=== PATIENT | female | born 1960 | race Caucasian/White ===

== ENCOUNTER 2017-01-05 10:31 | Emergency (ER) | payer BC ==
--- NOTE | 2017-01-05 12:13 | DIAGNOSTIC IMAGING REPORT ---
PROCEDURE: XR LUMBAR SPINE 2 OR 3 VIEWS INDICATION: LOWER BACK PAIN TECHNIQUE: Three views. COMPARISON: None. FINDINGS: Disc space narrowing at L4-5. No evidence of an acute process or fracture. IMPRESSION: 1. Mild spondylosis L4-5
--- NOTE | 2017-01-05 12:27 | ED CLINICAL REPORT ---
Clinical Report - Physicians/Mid Levels [facility] [address] [place] [address] 01/05/2017 10:32 Patient: MATTHEW GILBERT Time Seen: 11:00. Arrived- By private vehicle. Historian- patient. HISTORY OF PRESENT ILLNESS Chief Complaint: BACK PAIN. It is described as being severe and radiating to the left hip and thigh. The quality is noted to be aching, "pain" and similar to prior episodes. Onset was last night and it is still present. It was abrupt in onset and has been constant. No bladder dysfunction, bowel dysfunction, sensory loss or motor loss. Patient denies a recent injury. Similar symptoms previously: Frequently. REVIEW OF SYSTEMS No chills, fever, sweats, calf pain or chest pain. No cough, difficulty breathing, pedal edema, palpitations or abdominal pain. No black stools, constipation, diarrhea, nausea or vomiting. No urinary problems. All systems otherwise negative, except as recorded above. PAST HISTORY Problems: Back Injury. Herniated Disk. Back Pain. Headache. Migraine Headache. Fall. Myofascial Strain. Sprain. Additional Surgeries: Carpal Tunnel Surgery. Cholecystectomy. . Tonsillectomy. Tubal Ligation. Medications: Migrane Medication. Albuterol Sulfate HFA Inhalation. Nortriptyline HCl Oral 100mg, at bedtime. Tylenol Extra Strength Oral 3 tabs at 0630. Allergies: Ibuprofen. Non-Steroidal Antinflammatory. Relafen. Wellbutrin. SOCIAL HISTORY Current every day light tobacco smoker (cigarette)- less than 1/2 a pack per day. Alcohol use; consumes wine occasionally. No drug use. She lives with spouse. Has good social support. FAMILY HISTORY Denies family medical history. ADDITIONAL NOTES The nursing notes have been reviewed. PHYSICAL EXAM Vital Signs: 01/05/2017 10:45 BP: 146/100. HR: 96. RR: 18. O2 saturation: 100%. Temp: 97.5 F. Pain level now: 08/10. Have been reviewed. Appearance: Alert. Appears to be in pain. Eyes: Pupils equal, round and reactive to light. ENT: Pharynx normal. Neck: Normal inspection. Neck nontender. Painless ROM. CVS: Heart sounds normal. Respiratory: No respiratory distress. Breath sounds normal. Abdomen: No visible injury. Back: Muscle spasm of the back. Severely limited ROM in the back- in the lumbar spine: decreased flexion, extension, right lateral bending, left lateral bending and rotation to the right and left. No CVA tenderness. Skin: Skin warm and dry. Normal skin color. Normal skin turgor. Extremities: Extremities exhibit normal ROM. No calf tenderness. Neuro: No motor deficit. No sensory deficit. LABS, X-RAYS, AND EKG LS-Spine X-rays: (PROCEDURE: XR LUMBAR SPINE 2 OR 3 VIEWS INDICATION: LOWER BACK PAIN TECHNIQUE: Three views. COMPARISON: None. FINDINGS: Disc space narrowing at L4-5. No evidence of an acute process or fracture. IMPRESSION: 1. Mild spondylosis L4-5). The X-rays were interpreted by the radiologist and contemporaneously by me. PROGRESS AND PROCEDURES Course of Care: Patient is stable. Patient/family counseled. Old medical records reviewed. Disposition: Discharged. Condition: stable. CLINICAL IMPRESSION Nontraumatic lumbar back pain associated with degenerative disc disease of the lumbar spine. Lumbar radiculopathy present. Sciatica present on the right. INSTRUCTIONS Apply ice for 20 minutes four times a day until better. Don't apply ice directly to skin and don't use while asleep. No driving or operating machinery while taking medication. Warnings: GENERAL WARNINGS: Return or contact your physician immediately if your condition worsens or changes unexpectedly, if not improving as expected, or if other problems arise. Your Current Medications: CONTINUE TAKING THE FOLLOWING MEDICATIONS: Albuterol Sulfate HFA Inhalation. Migrane Medication*. Nortriptyline HCl Oral : 100mg at bedtime. CONTINUE TAKING THE FOLLOWING MEDICATIONS UNTIL YOU CHECK WITH YOUR PHYSICIAN: Tylenol Extra Strength Oral : 3 tabs at 0630. Prescription Medications: Hydrocodone/APAP 5mg/325mg: take 1 to 2 orally every 6 hours as needed for pain. Dispense fifteen (15). No refills. Understanding of the discharge instructions verbalized by patient and family. Follow-up with: Ladonna Hernandez, Advanced Registered Nurse Practitioner, , [facility], [address] [place], [place] [address], [id number] Follow up tomorrow Wednesday in one day as scheduled. (Electronically signed by Dewayne Toledo MD 01/05/2017 14:21)
--- NOTE | 2017-01-05 12:27 | ED ORDER SUMMARY ---
..... Patient: MATTHEW GILBERT OrderSheet Located Within [facility] VisitID: [id number] [address] [place] [address] 56y, F Registration Date/Time: 01/05/2017 ORDER SHEET Weight: 72.5 kg (stated) Allergies: Ibuprofen, Non-Steroidal Antinflammatory, Relafen, Wellbutrin GENERAL ORDERS: Lumbar Spine 2 or 3V Urgent (11:09 01/05/2017 Milana GRAHAM) (Ack 11:11 Danae) (11:23 Kacy R.N.) MEDICATION ORDERS: Dilaudid IM 2 mg (HIGH ALERT MEDICATION, NOW) (11:43 01/05/2017 Milana GRAHAM) (Ack 11:44 BURToarsara R.N.) (11:48 JBoardley R.N.) Zofran ODT PO 4 mg (NOW) (11:49 01/05/2017 Madisyn R.N. per protocol) (11:49 BURToardley R.N.) IV FLUIDS: ORDER SHEET NOTES: [Electronically signed by Diallo Vanessa R.N. (13:24 01/05/2017)] [Electronically signed by Dewayne Toledo MD (14:21 01/05/2017)] [Electronically locked/signed by Diallo Vanessa R.N. (13:24 01/05/2017)]
--- NOTE | 2017-01-05 12:27 | ED NURSING NOTES ---
Clinical Report - Nurses [facility] [address] [place] [address] 01/05/2017 10:32 Patient: MATTHEW GILBERT TRIAGE Triage time 10:45. Acuity: LEVEL 4. Chief Complaint: BACK PAIN. 10:45 01/05/17. 10:45 01/05/17. Alert. No acute distress. ( Pt states that she has chronic back pain and possibly has a flair up of this.). SEPSIS SCREEN: Sepsis Screen. Negative (no infection suspected/documented). RUT COMA SCORE: [place] Coma Scale: 15- eyes open spontaneously (4); best verbal response- oriented x 4 (5); best motor response- obeys commands (6). --10:49 Diallo Vanessa R.N. 10:45 01/05/17. BP: 146/100. HR: 96. RR: 18. O2 saturation: 100% on room air. Temp: 97.5 F (oral). Pain level now: 08/10. --10:49 Diallo Vanessa R.N. Weight: 72.5 kg stated. Height/Length: 62 inches Per Patient. BMI: 29.3. --10:45 Diallo Vanessa R.N. Medications Nortriptyline HCl Oral 100mg, at bedtime. Tylenol Extra Strength Oral 3 tabs at 0630. --10:48 Diallo Vanessa R.N. Albuterol Sulfate HFA Inhalation. --10:48 Diallo Vanessa R.N. Migrane Medication. --10:49 Diallo Vanessa R.N. Medication/allergy information source: the patient. --10:49 Diallo Vanessa R.N. Allergies Ibuprofen. --10:48 Diallo Vanessa R.N. Non-Steroidal Antinflammatory. Relafen. Wellbutrin. --10:48 Diallo Vanessa R.N. History Arrived by private vehicle. Historian: patient. Accompanied by family. Primary physician (Hiral LYNN). 10:45 01/05/17. Onset. (1 week ago). She has had trouble walking. No history of recent trauma. 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 PAST MEDICAL HX: Tetanus immunization status is not up-to-date. Immunizations not up to date. SOCIAL HX: Current every day light tobacco smoker (cigarette)- less than 1/2 a pack per day. Occasional alcohol use; consumes wine. No drug use. No infectious disease exposure. ABUSE ASSESSMENT: No report of abuse. FALL RISK ASSESSMENT: Fall risk assessment completed. No fall risk identified. NUTRITIONAL RISK ASSESSMENT: The nutritional risk assessment revealed no deficiencies. FUNCTIONAL ASSESSMENT: Functional assessment: no impairments noted. LEARNING NEEDS ASSESSMENT: The learning needs assessment revealed no barriers. SKIN INTEGRITY ASSESSMENT: Skin integrity risk assessment completed. No skin integrity risk identified. --10:49 Diallo Vanessa R.N. PROBLEMS: Headache. Migraine Headache. Fall. Myofascial Strain. Sprain. --10:49 Diallo Vanessa R.N. Concussion [RuleOut]. --10:49 Diallo Vanessa R.N. Back Injury. Herniated Disk. Back Pain. --10:51 Diallo Vanessa R.N. ADDITIONAL SURGERIES: Carpal Tunnel Surgery. Cholecystectomy. . Tonsillectomy. Tubal Ligation. --10:49 Diallo Vanessa R.N. Assessment 10:45 01/05/17. --10:49 Diallo Vanessa R.N. Interventions 10:45 01/05/17. 10:45 01/05/17. ID and allergy band on patient. To treatment room. --10:49 Diallo Vanessa R.N. PHYSICAL ASSESSMENT 10:50 01/05/17. To room via wheelchair. GENERAL / NEURO / PSYCH: Alert. Oriented X 4. Appears in pain. RESPIRATORY: Respirations not labored. CVS: Capillary refill less than 2 seconds. --10:50 Diallo Vanessa R.N. 10:51 01/05/17. BACK: ( Lumbar back pain with palpation). --10:51 Diallo Vanessa R.N. NURSING PROGRESS NOTES 10:50 01/05/17. The plan of care for this patient has been created. Patient gowned. Head of bed elevated. Two patient identifiers checked. Call light placed in reach. Side rails up x 2. Bed placed in lowest position. Brakes of bed on. Brakes of chair on. --10:50 Diallo Vanessa R.N. 10:50 01/05/17. Patient ready for evaluation- chart flagged and notification provided. --10:50 Diallo Vanessa R.N. Patient transported to radiology by stretcher. Patient returned from radiology by stretcher with tech. --11:23 Krista Ortiz R.N. 11:48 01/05/2017 Dilaudid (HYDROmorphone HCl PF) IM 2 mg given. Given in the right deltoid. Allergies verified, confirmed 5 rights and sedative warning given to the patient. --11:48 Diallo Vanessa R.N. 11:49 01/05/2017 Zofran ODT (Ondansetron) PO 4 mg given. Allergies verified and confirmed 5 rights. --11:49 Diallo Vanessa R.N. 11:50 01/05/17. --11:50 Diallo Vanessa R.N. 11:49 01/05/17. BP: 142/92. HR: 81. RR: 14. O2 saturation: 100% on room air. --11:50 Daillo Vanessa R.N. 11:50 01/05/17. ( Pt is sitting in wheelchair for comfort, call light within reach, at bedside). --11:50 Diallo Vanessa R.N. 12:20 01/05/17. Reassessment after medication administered. She has had no adverse reaction. Overall patient status is improved- she states feels better. GENERAL / NEURO / PSYCH: Alert. Oriented X 4. No sensory deficit. RESPIRATORY: No respiratory distress. Breath sounds normal. SKIN: Skin is warm and dry. Skin color within normal limits. ( Pt is able to stand and ambulate after pain meds). --12:20 Diallo Vanessa R.N. DISPOSITION / DISCHARGE 12:32 01/05/17. Condition at departure: improved. The goals identified in the patient's plan of care were met. No learning barriers present. Discharge instructions provided and reviewed with the patient and spouse. Reviewed warnings. Reviewed medication(s). Treatments reviewed. Patient and spouse verbalized understanding. Written instructions provided in Telugu. The patient was discharged by the physician. She was discharged home and accompanied by family. She left the Emergency Department in a wheelchair and via private vehicle. Family member driving. FALL RISK ASSESSMENT: Fall risk assessment completed. No fall risk identified. --12:32 Diallo Vanessa R.N. 12:31 01/05/17. BP: 145/85. HR: 80. RR: 14. O2 saturation: 99% on room air. Temp: 98 F (oral). Pain level now: 02/08. --12:32 Diallo Vanessa R.N. 12:32 01/05/17. Departure time: 12:32. --12:32 Diallo Vanessa R.N. Locked/Released at 01/05/2017 13:24 by Diallo Vanessa R.N.
--- NOTE | 2017-01-05 12:27 | ED CLINICAL REPORT ---
Clinical Report - Physicians/Mid Levels [facility] [address] [place] [address] 01/05/2017 10:32 Patient: MATTHEW GILBERT Time Seen: 11:00. Arrived- By private vehicle. Historian- patient. HISTORY OF PRESENT ILLNESS Chief Complaint: BACK PAIN. It is described as being severe and radiating to the left hip and thigh. The quality is noted to be aching, "pain" and similar to prior episodes. Onset was last night and it is still present. It was abrupt in onset and has been constant. No bladder dysfunction, bowel dysfunction, sensory loss or motor loss. Patient denies a recent injury. Similar symptoms previously: Frequently. REVIEW OF SYSTEMS No chills, fever, sweats, calf pain or chest pain. No cough, difficulty breathing, pedal edema, palpitations or abdominal pain. No black stools, constipation, diarrhea, nausea or vomiting. No urinary problems. All systems otherwise negative, except as recorded above. PAST HISTORY Problems: Back Injury. Herniated Disk. Back Pain. Headache. Migraine Headache. Fall. Myofascial Strain. Sprain. Additional Surgeries: Carpal Tunnel Surgery. Cholecystectomy. . Tonsillectomy. Tubal Ligation. Medications: Migrane Medication. Albuterol Sulfate HFA Inhalation. Nortriptyline HCl Oral 100mg, at bedtime. Tylenol Extra Strength Oral 3 tabs at 0630. Allergies: Ibuprofen. Non-Steroidal Antinflammatory. Relafen. Wellbutrin. SOCIAL HISTORY Current every day light tobacco smoker (cigarette)- less than 1/2 a pack per day. Alcohol use; consumes wine occasionally. No drug use. She lives with spouse. Has good social support. FAMILY HISTORY Denies family medical history. ADDITIONAL NOTES The nursing notes have been reviewed. PHYSICAL EXAM Vital Signs: 01/05/2017 10:45 BP: 146/100. HR: 96. RR: 18. O2 saturation: 100%. Temp: 97.5 F. Pain level now: 08/10. Have been reviewed. Appearance: Alert. Appears to be in pain. Eyes: Pupils equal, round and reactive to light. ENT: Pharynx normal. Neck: Normal inspection. Neck nontender. Painless ROM. CVS: Heart sounds normal. Respiratory: No respiratory distress. Breath sounds normal. Abdomen: No visible injury. Back: Muscle spasm of the back. Severely limited ROM in the back- in the lumbar spine: decreased flexion, extension, right lateral bending, left lateral bending and rotation to the right and left. No CVA tenderness. Skin: Skin warm and dry. Normal skin color. Normal skin turgor. Extremities: Extremities exhibit normal ROM. No calf tenderness. Neuro: No motor deficit. No sensory deficit. LABS, X-RAYS, AND EKG LS-Spine X-rays: (PROCEDURE: XR LUMBAR SPINE 2 OR 3 VIEWS INDICATION: LOWER BACK PAIN TECHNIQUE: Three views. COMPARISON: None. FINDINGS: Disc space narrowing at L4-5. No evidence of an acute process or fracture. IMPRESSION: 1. Mild spondylosis L4-5). The X-rays were interpreted by the radiologist and contemporaneously by me. PROGRESS AND PROCEDURES Course of Care: Patient is stable. Patient/family counseled. Old medical records reviewed. Disposition: Discharged. Condition: stable. CLINICAL IMPRESSION Nontraumatic lumbar back pain associated with degenerative disc disease of the lumbar spine. Lumbar radiculopathy present. Sciatica present on the right. INSTRUCTIONS Apply ice for 20 minutes four times a day until better. Don't apply ice directly to skin and don't use while asleep. No driving or operating machinery while taking medication. Warnings: GENERAL WARNINGS: Return or contact your physician immediately if your condition worsens or changes unexpectedly, if not improving as expected, or if other problems arise. Your Current Medications: CONTINUE TAKING THE FOLLOWING MEDICATIONS: Albuterol Sulfate HFA Inhalation. Migrane Medication*. Nortriptyline HCl Oral : 100mg at bedtime. CONTINUE TAKING THE FOLLOWING MEDICATIONS UNTIL YOU CHECK WITH YOUR PHYSICIAN: Tylenol Extra Strength Oral : 3 tabs at 0630. Prescription Medications: Hydrocodone/APAP 5mg/325mg: take 1 to 2 orally every 6 hours as needed for pain. Dispense fifteen (15). No refills. Understanding of the discharge instructions verbalized by patient and family. Follow-up with: Ladonna Hernandez, Advanced Registered Nurse Practitioner, , [facility], [address] [place], [place] [address], [id number] Follow up tomorrow Wednesday in one day as scheduled. (Electronically signed by Dewayne Toledo MD 01/05/2017 14:21)
--- NOTE | 2017-01-05 12:27 | ED ORDER SUMMARY ---
..... Patient: MATTHEW GILBERT OrderSheet [facility] VisitID: [id number] [address] [place] [address] 56y, F Registration Date/Time: 01/05/2017 ORDER SHEET Weight: 72.5 kg (stated) Allergies: Ibuprofen, Non-Steroidal Antinflammatory, Relafen, Wellbutrin GENERAL ORDERS: Lumbar Spine 2 or 3V Urgent (11:09 01/05/2017 Milana GRAHAM) (Ack 11:11 Danae) (11:23 Kacy R.N.) MEDICATION ORDERS: Dilaudid IM 2 mg (HIGH ALERT MEDICATION, NOW) (11:43 01/05/2017 Milana GRAHAM) (Ack 11:44 BURToarsara R.N.) (11:48 JBoardley R.N.) Zofran ODT PO 4 mg (NOW) (11:49 01/05/2017 Madisyn R.N. per protocol) (11:49 BURToardley R.N.) IV FLUIDS: ORDER SHEET NOTES: [Electronically signed by Diallo Vanessa R.N. (13:24 01/05/2017)] [Electronically signed by Dewayne Toledo MD (14:21 01/05/2017)] [Electronically locked/signed by Diallo Vanessa R.N. (13:24 01/05/2017)]
--- NOTE | 2017-01-05 14:21 | ED MED RECONCILIATION SUMMARY ---
Patient: MATTHEW GILBERT Medication Reconciliation Report [facility] VisitID: [id number] [address] [place] [address] 56y, F Registration Date/Time: 01/05/2017 Weight: 72.5 kg Height/Length: 62 in. BMI: 29.3 ALLERGIES: Ibuprofen, Non-Steroidal Antinflammatory, Relafen, Wellbutrin The patient's Home Medications are listed below: CONTINUE TAKING THE FOLLOWING MEDICATIONS: Albuterol Sulfate HFA Inhalation Migrane Medication Nortriptyline HCl Oral 100mg, at bedtime CONTINUE TAKING THE FOLLOWING MEDICATIONS UNTIL YOU CHECK WITH YOUR PHYSICIAN: Tylenol Extra Strength Oral 3 tabs at 0630 The source(s) of the original Home Medication information: patient The following Medications were given to the patient in the Emergency Department: Dilaudid [IM] IM 2 mg, administered: 01/05/2017 11:48:00 AM Zofran ODT [PO] PO 4 mg, administered: 01/05/2017 11:49:00 AM The following Medications were prescribed to the patient: Hydrocodone/APAP 5mg/325mg: take 1 to 2 orally every 6 hours as needed for pain. Dispense fifteen (15). No refills. -- Dewayne Toledo MD
--- NOTE | 2017-01-05 14:21 | ED MAR SUMMARY ---
..... Medication Administration Record [facility] [address] [place] [address] Patient: MATTHEW GILBERT Visit ID: [id number] 56y, F Weight: 72.5 kg Height/Length: 62 in BMI: 29.3 ALLERGIES: Ibuprofen, Non-Steroidal Antinflammatory, Relafen, Wellbutrin Given 11:48 01/05/2017 Diallo Vanessa R.N. Medication Administered: DILAUDID [IM] (HYDROMORPHONE HCL PF), Dose: 2 mg IM. Medication Ordered: Dilaudid IM 2 mg (HIGH ALERT MEDICATION, NOW). Given 11:49 01/05/2017 Diallo Vanessa R.N. Medication Administered: ZOFRAN ODT [PO] (ONDANSETRON), Dose: 4 mg PO. Medication Ordered: Zofran ODT PO 4 mg (NOW).
--- NOTE | 2017-01-05 14:21 | ED MED RECONCILIATION SUMMARY ---
Patient: MATTHEW GILBERT Medication Reconciliation Report [facility] VisitID: [id number] [address] [place] [address] 56y, F Registration Date/Time: 01/05/2017 Weight: 72.5 kg Height/Length: 62 in. BMI: 29.3 ALLERGIES: Ibuprofen, Non-Steroidal Antinflammatory, Relafen, Wellbutrin The patient's Home Medications are listed below: CONTINUE TAKING THE FOLLOWING MEDICATIONS: Albuterol Sulfate HFA Inhalation Migrane Medication Nortriptyline HCl Oral 100mg, at bedtime CONTINUE TAKING THE FOLLOWING MEDICATIONS UNTIL YOU CHECK WITH YOUR PHYSICIAN: Tylenol Extra Strength Oral 3 tabs at 0630 The source(s) of the original Home Medication information: patient The following Medications were given to the patient in the Emergency Department: Dilaudid [IM] IM 2 mg, administered: 01/05/2017 11:48:00 AM Zofran ODT [PO] PO 4 mg, administered: 01/05/2017 11:49:00 AM The following Medications were prescribed to the patient: Hydrocodone/APAP 5mg/325mg: take 1 to 2 orally every 6 hours as needed for pain. Dispense fifteen (15). No refills. -- Dewayne Toledo MD
--- NOTE | 2017-01-05 14:21 | ED MAR SUMMARY ---
..... Medication Administration Record [facility] [address] [place] [address] Patient: MATTHEW GILBERT Visit ID: [id number] 56y, F Weight: 72.5 kg Height/Length: 62 in BMI: 29.3 ALLERGIES: Ibuprofen, Non-Steroidal Antinflammatory, Relafen, Wellbutrin Given 11:48 01/05/2017 Diallo Vanessa R.N. Medication Administered: DILAUDID [IM] (HYDROMORPHONE HCL PF), Dose: 2 mg IM. Medication Ordered: Dilaudid IM 2 mg (HIGH ALERT MEDICATION, NOW). Given 11:49 01/05/2017 Diallo Vanessa R.N. Medication Administered: ZOFRAN ODT [PO] (ONDANSETRON), Dose: 4 mg PO. Medication Ordered: Zofran ODT PO 4 mg (NOW).
--- NOTE | 2017-01-05 14:21 | ED DISCHARGE INSTRUCTIONS ---
Patient: MATTHEW GILBERT General Instructions [facility] VisitID: [id number] [place] [phone], F Registration Date/Time: 01/05/2017 Nontraumatic lumbar back pain associated with degenerative disc disease of the lumbar spine. Lumbar radiculopathy present. Sciatica present on the right. INSTRUCTIONS Apply ice for 20 minutes four times a day until better. Don't apply ice directly to skin and don't use while asleep. No driving or operating machinery while taking medication. Warnings: GENERAL WARNINGS: Return or contact your physician immediately if your condition worsens or changes unexpectedly, if not improving as expected, or if other problems arise. Your Current Medications: CONTINUE TAKING THE FOLLOWING MEDICATIONS: Albuterol Sulfate HFA Inhalation. Migrane Medication*. Nortriptyline HCl Oral : 100mg at bedtime. CONTINUE TAKING THE FOLLOWING MEDICATIONS UNTIL YOU CHECK WITH YOUR PHYSICIAN: Tylenol Extra Strength Oral : 3 tabs at 0630. Prescription Medications: Hydrocodone/APAP 5mg/325mg: take 1 to 2 orally every 6 hours as needed for pain. Dispense fifteen (15). No refills. Understanding of the discharge instructions verbalized by patient and family. Follow-up with: Ladonna Hernandez, Advanced Registered Nurse Practitioner, , [facility], [address] [place] [address] Follow up tomorrow Wednesday in one day as scheduled. ADDITIONAL INFORMATION Sciatica Sciatica ("Lumbar Radiculopathy") causes a pain that spreads from the lower back down into the buttock, hip and leg. Sometimes leg pain can occur without any back pain. Sciatica is due to irritation or pressure on a spinal nerve as it comes out of the spinal canal. This is most often due to a bulge or rupture of a nearby spinal disk (the cartilage cushion between each spinal bone), which presses on a nearby nerve. Other causes include spinal stenosis (narrowing of the spinal canal) and spasm of the pyriform muscle (a muscle in the buttocks that the sciatic nerve passes through). Sciatica may begin after a sudden twisting/bending force (such as in a car accident), or sometimes after a simple awkward movement. In either case, muscle spasm is commonly present and contributes to the pain. The diagnosis of sciatica is made from the symptoms and physical exam. Unless you had a physical injury (such as a car accident or fall), X-rays are usually not ordered for the initial evaluation of sciatica because the nerves and disks cannot be seen on an x-ray. If signs of a compressed nerve are present (for example, loss of tendon reflex or strength in the leg), an MRI (magnetic resonance imaging) scan will need to be scheduled as an outpatient. Most sciatica (80-90%) gets better with medicine, exercise, physical therapy. If symptoms continue after at least three months of medical treatment, surgery may be considered. Home Care: You may need to stay in bed the first few days. But, as soon as possible, begin sitting or walking to avoid problems with prolonged bed rest. When in bed, try to find a position of comfort. A firm mattress is best. Try lying flat on your back with pillows under your knees. You can also try lying on your side with your knees bent up towards your chest and a pillow between your knees. Avoid prolonged sitting. This puts more stress on the lower back than standing or walking. Some persons find relief with heat (hot shower, hot bath or heating pad) and massage, while others prefer cold packs (crushed or cubed ice in a plastic bag, wrapped in a towel). Try both and use the method that feels best for 20 minutes several times a day. You may use acetaminophen (Tylenol) or ibuprofen (Motrin, Advil) to control pain, unless another pain medicine was prescribed. [ NOTE: If you have chronic liver or kidney disease or ever had a stomach ulcer or GI bleeding, talk with your doctor before using these medicines.] Be aware of safe lifting methods and do not lift anything over 15 pounds until all the pain is gone. Follow Up with your doctor or this facility if your symptoms do not start to improve after one week. Physical therapy or further testing may be needed. [NOTE: If X-rays were taken, they will be reviewed by a radiologist. You will be notified of any new findings that may affect your care.] Get Prompt Medical Attention if any of the following occur: Pain becomes worse, not controlled by the prescribed medicine Weakness or numbness in one or both legs Numbness in the groin, genital area Loss of bowel or bladder control Degenerative Disk Disease Spinal disks are gel-filled cushions between the bones of the spine (vertebrae). The disks act like shock absorbers. Over time, the disks may break down. This disorder is called degenerative disk disease (DDD). DDD can affect the neck or back. It is one of the most common causes of low back pain. It is the leading cause of disability in people under age 45 in the [place]. The pain usually remains localized to the lower back or neck. Muscle spasm is often present and adds to the pain. Disk degeneration is a natural part of aging, although it does not cause pain in most persons. It may also occur as a result of repeated minor injuries due to daily activities, sports, or accidents. It may lead to osteoarthritis of the spine. Back pain related to disk disease may come and go or become chronic and last for months or years. If the disk bulges or ruptures (also called slipped disk or herniated disk), it can put pressure on a nearby spinal nerve and cause neck or back pain that spreads down one arm or leg. X-rays or MRI (magnetic resonance imaging) scan may aid in the diagnosis. For acute pain, treatment consists of anti-inflammatory drugs, muscle relaxants, rest, ice, or heat. Narcotic pain medicines may be needed for short-term treatment of sudden worsening of pain. Due to their addictive potential, narcotics are not advised for long-term pain management. Other types of medicines are preferred. Surgery is usually not used to treat this condition unless there is a complication (such as nerve root compression). Home Care: FOR NECK PAIN: Use a comfortable pillow that supports the head and keeps the spine in a neutral position. The head should not be tilted forward or backward. FOR BACK PAIN: Avoid prolonged sitting. This puts more stress on the lower back than standing or walking. Establishing a regular exercise program to strengthen the supporting muscles of the spine will make it easier to live with DDD. During the first2 days after a flare-up of your pain, apply anice pack to the painful area for 20 minutes every 2-4 hours. This will reduce swelling and pain.Heat (hot shower, hot bath, or heating pad) works well for muscle spasm. You can start with ice, then switch to heat after2 days. Some patients feel best alternating ice and heat treatments. Use the method that feelsbest to you. You may use acetaminophen (Tylenol) or ibuprofen (Motrin, Advil) to control pain, unless another pain medicine was prescribed. [NOTE: If you have chronic liver or kidney disease or ever had a stomach ulcer or GI bleeding, talk with your doctor before using these medicines.] Follow Up with your physician, or as directed by our staff. [NOTE: If x-rays, a CT scan or an MRI scan were taken, they will be reviewed by a radiologist. You will be notified of any new findings that may affect your care.] Return Promptly or contact your doctor if any of the following occur: Increasing back pain New weakness, numbness, or pain in one or both arms or legs Foot drop (foot drags when you walk) Loss of bowel or bladder control Numbness or tingling in the buttock or groin area Unexplained fever over 100.4F (38.0C) Hydrocodone Bitartrate, Acetaminophen Oral tablet What is this medicine? ACETAMINOPHEN; HYDROCODONE (a set a RUPAL lacie fen; brad droe KOE done) is a pain reliever. It is used to treat mild to moderate pain. How should I use this medicine? Take this medicine by mouth. Swallow it with a full glass of water. Follow the directions on the prescription label. If the medicine upsets your stomach, take the medicine with food or milk. Do not take more than you are told to take. Talk to your planning specialist regarding the use of this medicine in children. This medicine is not approved for use in children. What side effects may I notice from receiving this medicine? Side effects that you should report to your doctor or health care administrative tech as soon as possible: allergic reactions like skin rash, itching or hives, swelling of the face, lips, or tongue breathing problems confusion feeling faint or lightheaded, falls stomach pain yellowing of the eyes or skin Side effects that usually do not require medical attention (report to your doctor or health care administrative tech if they continue or are bothersome): nausea, vomiting stomach upset What may interact with this medicine? alcohol antihistamines isoniazid medicines for depression, anxiety, or psychotic disturbances medicines for sleep muscle relaxants naltrexone narcotic medicines (opiates) for pain phenobarbital ritonavir tramadol What if I miss a dose? If you miss a dose, take it as soon as you can. If it is almost time for your next dose, take only that dose. Do not take double or extra doses. Where should I keep my medicine? Keep out of the reach of children. This medicine can be abused. Keep your medicine in a safe place to protect it from theft. Do not share this medicine with anyone. Selling or giving away this medicine is dangerous and against the law. Store at room temperature between 15 and 30 degrees C (59 and 86 degrees F). Protect from light. Keep container tightly closed. Throw away any unused medicine after the expiration date. Discard unused medicine and used packaging carefully. Pets and children can be harmed if they find used or lost packages. What should I tell my health care provider before I take this medicine? They need to know if you have any of these conditions: brain tumor Crohn's disease, inflammatory bowel disease, or ulcerative colitis drink more than 3 alcohol-containing drinks per day drug abuse or addiction head injury heart or circulation problems kidney disease or problems going to the bathroom liver disease lung disease, asthma, or breathing problems an unusual or allergic reaction to acetaminophen, hydrocodone, other opioid analgesics, other medicines, foods, dyes, or preservatives or trying to get breast-feeding What should I watch for while using this medicine? Tell your doctor or health care administrative tech if your pain does not go away, if it gets worse, or if you have new or a different type of pain. You may develop tolerance to the medicine. Tolerance means that you will need a higher dose of the medicine for pain relief. Tolerance is normal and is expected if you take the medicine for a long time. Do not suddenly stop taking your medicine because you may develop a severe reaction. Your body becomes used to the medicine. This does NOT mean you are addicted. Addiction is a behavior related to getting and using a drug for a non-medical reason. If you have pain, you have a medical reason to take pain medicine. Your doctor will tell you how much medicine to take. If your doctor wants you to stop the medicine, the dose will be slowly lowered over time to avoid any side effects. You may get drowsy or dizzy when you first start taking the medicine or change doses. Do not drive, use machinery, or do anything that may be dangerous until you know how the medicine affects you. Stand or sit up slowly. There are different types of narcotic medicines (opiates) for pain. If you take more than one type at the same time, you may have more side effects. Give your health care provider a list of all medicines you use. Your doctor will tell you how much medicine to take. Do not take more medicine than directed. Call emergency for help if you have problems breathing. The medicine will cause constipation. Try to have a bowel movement at least every 2 to 3 days. If you do not have a bowel movement for 3 days, call your doctor or health care administrative tech. Too much acetaminophen can be very dangerous. Do not take Tylenol (acetaminophen) or medicines that contain acetaminophen with this medicine. Many non-prescription medicines contain acetaminophen. Always read the labels carefully. You have been given the following additional information: Back Pain W/ Sciatica Degenerative Disk Disease Hydrocodone Bitartrate, Acetaminophen Oral tablet No driving or operating machinery while taking medication. (Electronically signed by Dewayne Toledo MD 01/05/2017 14:21)
== END 2017-01-05 12:32 | disposition home or self-care (01) ==
LOC: ED SRH 10:31
DX: M51.16 Intervertebral disc disorders with radiculopathy, lumbar region (principal); F17.210 Nicotine dependence, cigarettes, uncomplicated; Z88.8 Allergy status to other drugs, medicaments and biological substances